=== PATIENT | female | born 1950 | race Caucasian/White ===

== ENCOUNTER 2023-03-27 09:45 | Outpatient (RCR) | payer MEDICARE, BC, SELFPAY ==
--- NOTE | 2023-03-11 08:18 | PC.NURSE ---
Pt contacted [facility] via email to request appointments for IVF while visiting her daughter in [place] for the month of March. Pt has advanced stage endometrial cancer and is on active treatment. Pt states that she does best when she gets IVF 1-2 x per week. She will be traveling to [place] from [place] on 03/11/2023. Orders and records received, pt contacted and scheduled for 03/13/2023. Further visits can be scheduled while she is here on Thursday. Of note, pt has a port a cath and plans to bring documentation so we can use it.
[2023-03-13 11:47] VITALS: BP 97/61; PULSE 80; RESP 16; TEMP 36.4; O2SAT 92
[2023-03-13] MEDS: 0.9 % SODIUM CHLORIDE 1000 ml 1,000 ML IV (12:00)
[2023-03-13] MEDS: HEPARIN 500 UNIT/5 ML SYRINGE IVF (13:08)
[2023-03-13] MEDS: SODIUM CHLORIDE 0.9 % (FLUSH) 10 ML SYRINGE IVF (13:08)
[2023-03-17 09:22] VITALS: BP 114/77; PULSE 75; RESP 16; TEMP 36.2; O2SAT 95
[2023-03-17] MEDS: 0.9 % SODIUM CHLORIDE 1000 ml 1,000 ML IV (09:35)
[2023-03-17] MEDS: SODIUM CHLORIDE 0.9 % (FLUSH) 10 ML SYRINGE IVF (10:33)
[2023-03-17] MEDS: HEPARIN 500 UNIT/5 ML SYRINGE IVF (10:33)
[2023-03-20] MEDS: 0.9 % SODIUM CHLORIDE 1000 ml 1,000 ML IV (11:48)
[2023-03-20 11:52] VITALS: BP 120/65; PULSE 66; RESP 16; TEMP 36.2; O2SAT 95
[2023-03-20] MEDS: HEPARIN 500 UNIT/5 ML SYRINGE IVF (12:54)
[2023-03-20] MEDS: SODIUM CHLORIDE 0.9 % (FLUSH) 10 ML SYRINGE IVF (12:54)
[2023-03-24] MEDS: 0.9 % SODIUM CHLORIDE 1000 ml 1,000 ML IV (11:47)
[2023-03-24 11:59] VITALS: BP 110/56; PULSE 96; RESP 16; TEMP 35.8; O2SAT 96
[2023-03-27 09:51] VITALS: BP 118/76; PULSE 78; RESP 16; TEMP 36.3; O2SAT 96
[2023-03-27] MEDS: HEPARIN 500 UNIT/5 ML SYRINGE IVF (11:50)
[2023-03-27] MEDS: SODIUM CHLORIDE 0.9 % (FLUSH) 10 ML SYRINGE IVF (11:50)
== END 2023-09-09 23:59 | disposition home or self-care (01) ==
LOC: CCIC 09:45
PROVIDERS: PCP Clinical Nurse Specialist; Referring Provider Clinical Nurse Specialist; Visit Provider Clinical Nurse Specialist
DX: C54.1 Malignant neoplasm of endometrium (principal)
CPT/HCPCS: 96360; J1642; J7030